=== PATIENT | female | born 1935 | race Caucasian/White ===

== ENCOUNTER 2018-07-11 12:23 | Emergency (ER) | payer BC ==
[~2018-07-11] VITALS: Ht 160 cm; Wt 69.9 kg
[~2018-07-11 12:23] MED LIST: AMLO2.5T PO; LISI10TA11 PO; PRED5TAB7 PO
[2018-07-11 13:03] VITALS: BP 188/81
--- NOTE | 2018-07-11 13:24 | NUR ---
Patient ambulated to bed 10.
--- NOTE | 2018-07-11 13:30 | NUR ---
PT. BIB FAMILY W/ C/O RINGING ON THE LT EAR X 4 DAYS. DENIES DISCHARGE, INJURY, DIZZINESS, DENIES N/V/D. PT DENIES ANY PAIN BUT STATES " IT WAS RINGING ALL LAST NIGHT AND IT DIDNT LET ME SLEEP". RR EVEN AND UNLABORED. ABLE TO SPEAK IN FULL AND COMPLETE SENTENCES. SAFETY PRECAUTIONS IN PLACE. ER MD MADE AWARE. WILL CONTINUE TO MONITOR.
[2018-07-11 15:10] VITALS: BP 167/62
--- NOTE | 2018-07-11 15:10 | NUR ---
Patient discharged with v/s stable. Written and verbal after care instructions given and explained. Patient verbalized understanding. Ambulatory with steady gait. All questions addressed prior to discharge. Advised to follow up with PMD.
== END 2018-07-11 15:10 | disposition home or self-care (01) ==
LOC: MED 12:23
DX: H61.22 Impacted cerumen, left ear (principal); I10 Essential (primary) hypertension; M32.9 Systemic lupus erythematosus, unspecified; Z79.899 Other long term (current) drug therapy
CPT/HCPCS: 99283

== ENCOUNTER 2019-01-04 18:00 | Inpatient (IN) | payer OTHER, BC ==
[~2019-01-04] VITALS: Ht 170.2 cm; Wt 54.4 kg
[2019-01-04 18:16] VITALS: BP 112/77
--- NOTE | 2019-01-04 18:23 | NUR ---
PT WHEEL CHAIRED TO LOBBY AT THIS TIME, VSS. PT STATES SHE IS UNABLE TO PROVIDE URINE SAMPLE AT THIS TIME.
[2019-01-04 18:55] LABS: BASOPHILS % (AUTO) 0.3 % (0.0-2.0); EOSINOPHILS % (AUTO) 0.1 % (0.0-4.0); HEMOGLOBIN 11.4 g/dL (12.0-16.0); LYMPHOCYTES # (AUTO) 1.5 K/uL (2.5-16.5); LYMPHOCYTES % (AUTO) 9.3 % (20.5-51.1); MEAN CORPUSCULAR HEMOGLOBIN 28 pg (27-31); MEAN CORPUSCULAR HGB CONC 33 g/dL (33-37); MEAN CORPUSCULAR VOLUME 85.4 fL (80-94); MONOCYTES # (AUTO) 1.2 K/uL (0.8-1.0); MONOCYTES % (AUTO) 7.7 % (1.7-9.3); NEUTROPHILS # (AUTO) 13.1 K/uL (1.8-7.7); NEUTROPHILS % (AUTO) 82.6 % (42.2-75.2); PLATELET COUNT (AUTO) 474 K/uL (140-450); RED CELL DISTRIBUTION WIDTH 14.3 % (11.6-13.7); WHITE BLOOD COUNT (AUTO) 15.8 K/uL (4.8-10.8)
--- NOTE | 2019-01-04 18:56 | NUR ---
PT TAKEN TO BED 9 VIA W/C.
[2019-01-04 19:10] LABS: ALBUMIN 2.8 g/dL (3.4-5.0); ANION GAP 18.8 (8-16); ASPARTATE AMINOTRANSFERASE 50 U/L (15-37); CARBON DIOXIDE 21.5 mmol/L (21-32); CHLORIDE 99 mmol/L (98-107); CREATININE 1.7 mg/dL (0.6-1.3); GLUCOSE 149 mg/dL (74-106); POTASSIUM 4.3 mmol/L (3.5-5.1); SODIUM SERUM 135 mmol/L (136-145); TOTAL BILIRUBIN 1.1 mg/dL (0.0-1.0)
[2019-01-04 19:13] LABS: UREA NITROGEN, BLOOD 63 mg/dL (7-18)
--- NOTE | 2019-01-04 19:37 | NUR ---
Dr. Leyva examining patient.
[2019-01-04] MEDS ORDERED: NACL 0.9% 500 ML IV SCH (19:50)
[2019-01-04 20:16] LABS: PROTHROMBIN TIME 12.4 secs (10.8-13.4)
--- NOTE | 2019-01-04 20:37 | NUR ---
PT TAKEN TO CT
--- NOTE | 2019-01-04 20:49 | NUR ---
PT RETURN FROM CT
[2019-01-04] MEDS ORDERED: MORPHINE SULFATE 2 MG/ML SYR IVP ONE (21:00)
[2019-01-04] MEDS ORDERED: ASPIRIN 81 MG TAB.CHEW PO ONE (21:00)
--- NOTE | 2019-01-04 21:00 | NUR ---
83 Y/O FEMALE PRESENTS TO ED, C/O LOWER QUADRANT ABD ACHING PAIN 12/30. PT C/O OF N/V X4 WEEKS. STATES BEING UNABLE TO RETAIN FLUID AND FOOD. PT HAS ACTIVE BS ON ALL QUADRANTS. SOFT, TENDER C/O OF PAIN ON PALPATION. PT STATES HAVING DIFFICULTY VOIDING. PT DENIES ANY CONSTIPATION. PT HAS HX OF HTN. PT VSS. ERMD AWARE. WILL CONTINUE TO MONITOR.
--- NOTE | 2019-01-04 21:15 | NUR ---
PT ATTEMPTED TO COLLECT URINE VIA BEDPAN, UNABLE TO AT THIS TIME, PT REFUSING STRAIGHT CATH AT THIS TIME. PT C/O LOWER ABD PAIN, ADMINISTERED DUE MEDS WITH EDUCATION, PT VERBALIZED UNDERSTANDING, REPORTED MILD NAUSEA WHICH RESOLVED SHORTLY AFTER, ALL NEEDS MET.
[2019-01-04] MEDS ORDERED: HYDR-5122 PO (22:00)
[2019-01-04] MEDS ORDERED: LORazepam 2 MG/ML VIAL IM/IVP PRN (22:50)
[2019-01-04] MEDS ORDERED: ACETAMINOPHEN 325 MG TAB PO PRN (22:50)
[2019-01-04] MEDS ORDERED: FAMOTIDINE 20 MG/2 ML VIAL IV PRN (22:50)
[2019-01-04] MEDS ORDERED: MORPHINE SULFATE 2 MG/ML SYR IVP PRN (22:50)
[2019-01-04] MEDS ORDERED: DOCUSATE SODIUM 100 MG GELCAP PO PRN (22:50)
[2019-01-04] MEDS ORDERED: MEDICATION REC. PHARMACY CONS. 1 EA MISC MC PRN (22:55)
[2019-01-04] MEDS ORDERED: HEPARIN PER PHARMACY MC PRN (23:00)
[2019-01-04] MEDS ORDERED: hePARIN / DEXT 5% PREMIX 250 ML IV SCH ×2 (23:00→23:40)
[2019-01-04] MEDS ORDERED: LISINOPRIL 10 MG TAB PO SCH (23:00)
--- NOTE | 2019-01-04 23:10 | NUR ---
RECEIVED PT FROM ER, VIA GURNEY, PATIENT AWAKE ALERT ORIENTED X 4, PERSIAN SPEAKING. PT W/ IV ON THE LEFT FOREARM G 22, PATENT AND INTACT NO IV RUMMING. PT NO COMPLAINTS NO PAIN AT THIS TIME. Dx NSTEMI: CC: ABD PAIN. PT WITH GENERALIZED WEAKNESS, PLACED IN A LOW BED POSITION, FALL RISK PROTOCOL IN PLACE; ALLERGIC TO PCN. CALL LIGHT W/IN REACH. WILL CONTINUE TO MONITOR
[2019-01-04 23:24] LABS: CHOL/HDL RATIO 5.5 (1-4.5); FREE T4 (FREE THYROXINE) 1.44 ng/dL (0.76-1.46); MAGNESIUM 2.7 mg/dL (1.8-2.4); THYROID STIMULATING HORMONE 1.71 uIU/mL (0.34-3.74)
--- NOTE | 2019-01-04 23:30 | NUR ---
PT TRANSFERRED TO MS UNIT ROOM 122A. TRANSFERRED PT VIA GURNEY. PT STABLE AT TRANSFER. REPORT GIVEN TO JONELLE MARK. PT CARE TRANSFERRED.
--- NOTE | 2019-01-04 23:50 | NUR ---
DR DURBIN AT BEDSIDE FOR HX AND PHYSICAL, RN AT BEDSIDE AND USES SPONGE MAKER PHONE PITER # [phone].
--- NOTE | 2019-01-05 | NUR ---
IV LINE FOR HEPARIN DRIP STARTED ON ANOTHER LEFT FOREARM G 22
[2019-01-05] MEDS ORDERED: ALBUTEROL SULFATE/IPRATROPIU 3 ML SOL IH PRN (00:15)
[2019-01-05] MEDS ORDERED: NACL 0.9% 1,000 ML IV SCH (00:30)
[2019-01-05] MEDS ORDERED: cefTRIAXone 1,000 MG VIAL ONE (01:07)
[2019-01-05] MEDS ORDERED: SODIUM PHOSPHATE 118 ML ENEM RC ONE (01:30)
--- NOTE | 2019-01-05 02:00 | NUR ---
PT C/O OF 7/10 BILATERAL ABDOMINAL PAIN, MORPHINE PRN GIVEN
[2019-01-05 02:07] LABS: APPEARANCE,URINE SL CLOUDY (CLEAR); BILIRUBIN,URINE 1+ (NEGATIVE); BLOOD, URINE 1+ (NEGATIVE); COLOR,URINE YELLOW (YELLOW); LEUKOCYTE ESTERASE ,URINE 1+ (NEGATIVE); NITRITE, URINE NEGATIVE (NEGATIVE); PH,URINE 5.5 (5.0-9.0); UGLUCOSE NEGATIVE (NEGATIVE)
[2019-01-05] MEDS: DOCUSATE SODIUM 100 MG GELCAP PO SCH ×3 (02:10→09:16)
--- NOTE | 2019-01-05 02:30 | NUR ---
CLEANED PT AND TURNED PT W/ THE HELP OF THE PT
[2019-01-05] MEDS ORDERED: HYDROmorphone 1 MG/ML AMP IVP PRN (02:35)
[2019-01-05 02:38] LABS: RBC,URINE 0-5 /HPF (0-5); URINE AMORPHOUS URATE 2+ /HPF (None Seen)
[2019-01-05] MEDS: DEXT 5% / NACL 0.9% 1,000 ML IV SCH ×2 (03:46→18:41)
[2019-01-05 04:00] VITALS: BP 131/65
--- NOTE | 2019-01-05 04:00 | NUR ---
PT C/O OF PAIN CHANDRAKANT 11/29 WILL GIVE PAIN MEDS ORDERED
[2019-01-05] MEDS: metroNIDAZOLE 500 MG/NS PREMIX 100 ML IV SCH ×3 (05:41→20:50)
[2019-01-05] MEDS: HYDROmorphone 1 MG/ML AMP IVP PRN ×3 (05:45→19:40)
[2019-01-05] MEDS ORDERED: ALBUTEROL SULFATE/IPRATROPIU 3 ML SOL IH SCH (06:00)
--- NOTE | 2019-01-05 07:10 | NUR ---
WILL ENDORSE TO NEXT SHIFT; PT AWAKE ALERT ORIENTED X 4 STABLE AT THIS TIME
[2019-01-05 07:16] LABS: BASOPHILS # (AUTO) 0.1 K/uL (0.00-0.22); BASOPHILS % (AUTO) 0.5 % (0.0-2.0); EOSINOPHILS % (AUTO) 0.1 % (0.0-4.0); HEMATOCRIT 32.4 % (36-48); HEMOGLOBIN 10.4 g/dL (12.0-16.0); LYMPHOCYTES # (AUTO) 1.2 K/uL (2.5-16.5); LYMPHOCYTES % (AUTO) 8.9 % (20.5-51.1); MEAN CORPUSCULAR HEMOGLOBIN 28 pg (27-31); MEAN CORPUSCULAR HGB CONC 32 g/dL (33-37); MEAN CORPUSCULAR VOLUME 86.1 fL (80-94); MONOCYTES # (AUTO) 1.3 K/uL (0.8-1.0); MONOCYTES % (AUTO) 9.6 % (1.7-9.3); NEUTROPHILS # (AUTO) 10.8 K/uL (1.8-7.7); NEUTROPHILS % (AUTO) 80.9 % (42.2-75.2); PLATELET COUNT (AUTO) 412 K/uL (140-450); RED BLOOD CELL COUNT(AUTO) 3.77 MIL/uL (4.20-5.40); RED CELL DISTRIBUTION WIDTH 14.3 % (11.6-13.7); WHITE BLOOD COUNT (AUTO) 13.4 K/uL (4.8-10.8)
--- NOTE | 2019-01-05 07:20 | NUR ---
RECEIVED REPORT FROM PERSONNEL SECURITY ASSISTANT NURSE. PT IS AWAKE AND ORIENTED. PT IS ON ROOM AIR. ON TELE. SKIN INTACT. IV ON L FA 22 X 2. ONE D5NS INFUSING AT 75ML AND OTHER, HEPARIN AT 650UNITS/HR. NO SIGNS OF DISTRESS. PT IS NPO EXCEPT MEDS. WILL CONTINUE TO MONITOR PT.
[2019-01-05 07:21] LABS: ANION GAP 15.7 (8-16); CARBON DIOXIDE 23.8 mmol/L (21-32); CHLORIDE 103 mmol/L (98-107); CREATININE 1.1 mg/dL (0.6-1.3); GLUCOSE 130 mg/dL (74-106); POTASSIUM 3.5 mmol/L (3.5-5.1); SODIUM SERUM 139 mmol/L (136-145); UREA NITROGEN, BLOOD 50 mg/dL (7-18)
[2019-01-05 07:22] LABS: MAGNESIUM 2.5 mg/dL (1.8-2.4); PHOSPHORUS 3.7 mg/dL (2.5-4.9)
--- NOTE | 2019-01-05 07:54 | NUR ---
PATIENT HAS BEEN SCREENED AND CATEGORIZED HIGH NUTRITION RISK. PATIENT WILL BE SEEN WITHIN 1-2 DAYS OF ADMISSION. 01/05/19-01/06/[address]
[2019-01-05 08:00] VITALS: BP 115/57
[2019-01-05] MEDS ORDERED: LACTOBACILLUS RHAMNOSUS GG 1 EACH CAP PO SCH ×2 (09:00)
[2019-01-05] MEDS: ASPIRIN 81 MG TAB.CHEW PO SCH (09:16)
[2019-01-05] MEDS: METOPROLOL 25 MG TAB PO SCH ×2 (09:17→21:00)
[2019-01-05] MEDS: POLYETHYLENE GLYCOL 17 GM/PKT PO SCH (09:17)
--- NOTE | 2019-01-05 09:20 | NUR ---
ADMINISTERED MORNING MEDS. TOLERATED WELL. WILL CONTINUE TO MONITOR PT.
--- NOTE | 2019-01-05 10:21 | NUR ---
PT PTT CAME BACK AT 38.5. HEPARIN PUSH 1600 AND INCREASE 110 TO CURRENT 650. CURRENT RATE 760. PHARMACY VERIFIED. TOLERATING WELL.
[2019-01-05 12:00] VITALS: BP 110/58
--- NOTE | 2019-01-05 12:00 | NUR ---
ORDERS FOR HEPARIN DRIP TO BE CANCELLED. PHARMACY CALLED. STOPPED HEPARIN DRIP. DISCARDED FLUID AND LINES FROM ROOM.
--- NOTE | 2019-01-05 13:25 | NUR ---
ADMINISTERED FLAGYL. WILL CONTINUE TO MONITOR PT.
--- NOTE | 2019-01-05 13:26 | NUR ---
*S.T. BEDSIDE SWALLOW EVAL COMPLETED* See report. Pt presents with adequate oropharyngeal swallow function of textures given. However, pt was mostly noncooperative during eval due to c/o disliking the P.O. trials that were given for the eval. Pt volitionally spit out masticated cracker and juice from straw. However, no overt s/s aspiration were observed. Pt was observed to cough before and after P.O. trials were given, but pt stated and DEEDEE Kruse verified that pt has had a cough at rest. Pt's voice was clear after swallows. Recommend: 1) Advance to mechanical soft diet. Thin liquids okay. Straws okay. 2) P.O. meds as tolerated. 3) Nsg to assist with tray set up to promote self-feeding. 4) Defer to MD/DO for appropriate dietary restrictions. No further tx indicated at this time. DC to nsg. Endorsed to DEEDEE Kruse. Addendum: 01/05/19 at 1326 by Rosaura HODGES Time [phone]
[2019-01-05] MEDS: ALBUTEROL SULFATE/IPRATROPIU 3 ML SOL IH SCH ×2 (13:35→20:00)
--- NOTE | 2019-01-05 14:11 | NUR ---
01/05/19 RD INITIAL ASSESSMENT COMPLETED PLEASE REFER TO NUTRITION ASSESSMENT UNDER CARE ACTIVITY FOR ESTIMATED NUTRITIONAL NEEDS. 1. CONSIDER MECHANICAL SOFT DIET WITH ENSURE TID TOLERATED 2. IF PATIENT CANNOT TOLERATE ORAL DIET, CONSIDER NUTRITION SUPPORT VIA ENTERAL NUTRITION WITH JEVITY 1.2 @ 65 ML/HR X 24 HOURS GOAL RATE. START AT 10 ML/HR AND ADVANCE BY 10 ML/HR Q6H TO AVOID REFEEDING SYNDROME. FREE WATER FLUSH 100 ML Q4H 3. CONSIDER TPN IF PATIENT DOES NOT TOLERATE TUBE FEEDING 4. RD TO FOLLOW-UP 2-3 DAYS, HIGH RISK SAVANNAH JOSEPH RD
--- NOTE | 2019-01-05 15:00 | NUR ---
GOT CONSENT FOR CT ABD/PEL WITH CONTRAST. PT VERBALIZED UNDERSTANDING. SIGNED CONSENT. IN CHART.
[2019-01-05 16:00] VITALS: BP 125/61
--- NOTE | 2019-01-05 19:24 | NUR ---
ENDORSED PT TO THE RESIDENTIAL ADVISOR NURSE AT BEDSIDE FOR CONTINUITY OF CARE. PT IS IN STABLE CONDITION.
--- NOTE | 2019-01-05 19:25 | NUR ---
RECEIVED REPORT FROM LOG PEELER NURSE. PT IS AWAKE AND ORIENTEDX 4. PT IS ON ROOM AIR. ON TELE. ANGIE AT BEDSIDE. SKIN INTACT. IV ON L FA 22 X 2. D5NS INFUSING AT 75ML. ANOTHER IV ON THE R FA G 20, SL. PT IS A HARD STICK. NO SIGNS OF DISTRESS. PT IS ON CARDIAC DIET. WILL CONTINUE TO MONITOR PT.
--- NOTE | 2019-01-05 19:30 | NUR ---
ATE WITH 40% DINNER, MECH SOFT
--- NOTE | 2019-01-05 19:40 | NUR ---
PT' C/O ABD PAIN 11/29 DILAUDID PRN GIVEN
[2019-01-05 20:00] VITALS: BP 122/63
--- NOTE | 2019-01-05 20:26 | NUR ---
2009 collected sputum and sent to lab
--- NOTE | 2019-01-05 20:58 | NUR ---
WITHHELD THE BP MEDS LOPRESSOR BP IS 122/63, HR 80, DR. UDRBIN INFORMED
[2019-01-05] MEDS ORDERED: SIMVASTATIN 10 MG TAB PO SCH (21:00)
[2019-01-06] VITALS: BP 119/59
[2019-01-06 04:00] VITALS: BP 120/60
--- NOTE | 2019-01-06 05:23 | NUR ---
PT NOT TOLERATING FOOD/ SNACKS SHE SPITS IT OUT ALTHOUGH PER ST, SHE PASSED HER SWALLOW EVAL. DR. DURBIN INFORMED. WILL ORDER ENSURE TID
[2019-01-06] MEDS: DEXT 5% / NACL 0.9% 1,000 ML IV SCH (06:17)
[2019-01-06] MEDS: metroNIDAZOLE 500 MG/NS PREMIX 100 ML IV SCH ×3 (06:25→21:49)
[2019-01-06] MEDS: ALBUTEROL SULFATE/IPRATROPIU 3 ML SOL IH SCH ×3 (07:00→18:54)
[2019-01-06 07:19] LABS: BASOPHILS # (AUTO) 0.1 K/uL (0.00-0.22); BASOPHILS % (AUTO) 0.7 % (0.0-2.0); EOSINOPHILS % (AUTO) 0.2 % (0.0-4.0); HEMATOCRIT 30.7 % (36-48); HEMOGLOBIN 10.1 g/dL (12.0-16.0); LYMPHOCYTES # (AUTO) 0.7 K/uL (2.5-16.5); LYMPHOCYTES % (AUTO) 5.4 % (20.5-51.1); MEAN CORPUSCULAR HEMOGLOBIN 28 pg (27-31); MEAN CORPUSCULAR HGB CONC 33 g/dL (33-37); MEAN CORPUSCULAR VOLUME 86.5 fL (80-94); MONOCYTES # (AUTO) 1.3 K/uL (0.8-1.0); MONOCYTES % (AUTO) 10.5 % (1.7-9.3); NEUTROPHILS # (AUTO) 10.5 K/uL (1.8-7.7); NEUTROPHILS % (AUTO) 83.2 % (42.2-75.2); PLATELET COUNT (AUTO) 401 K/uL (140-450); RED BLOOD CELL COUNT(AUTO) 3.55 MIL/uL (4.20-5.40); RED CELL DISTRIBUTION WIDTH 14.1 % (11.6-13.7); WHITE BLOOD COUNT (AUTO) 12.6 K/uL (4.8-10.8)
--- NOTE | 2019-01-06 07:20 | NUR ---
GOT BEDSIDE REPORT FROM ASSOCIATE JAVA DEVELOPER NURSE. PATIENT ON TELE MONITOR WITH STANDARD PRECAUTIONS IN PLACE. PATIENT AAOX3, FOLLOWS COMMANDS, AND ON ROOM AIR, NO DISTRESS NOTED. PATIENT BEDREST AND CONTINENT. SKIN INTACT. IV ON L FA 22G INFUSING D5NS AT 75, IV PATENT AND INTACT. IVS ON L FA 22G AND R FA 22G BOTH SALINE LOCK, IVS PATENT AND INTACT. FALL RISK PROTOCOL IN PLACE. BED IN LOW POSITION, CALL LIGHT WITHIN REACH, SIDE RAILS X2 UP
[2019-01-06 07:28] LABS: MAGNESIUM 2.2 mg/dL (1.8-2.4); PHOSPHORUS 3.1 mg/dL (2.5-4.9)
[2019-01-06 07:31] LABS: ANION GAP 12.1 (8-16); CARBON DIOXIDE 26.1 mmol/L (21-32); CHLORIDE 109 mmol/L (98-107); CREATININE 0.9 mg/dL (0.6-1.3); GLUCOSE 168 mg/dL (74-106); POTASSIUM 3.2 mmol/L (3.5-5.1); SODIUM SERUM 144 mmol/L (136-145); UREA NITROGEN, BLOOD 36 mg/dL (7-18)
[2019-01-06 08:00] VITALS: BP 140/58
[2019-01-06] MEDS: HYDROmorphone 1 MG/ML AMP IVP PRN ×4 (08:29→21:38)
[2019-01-06] MEDS: ONDANSETRON 4 MG/2 ML VIAL IM/IVP PRN ×2 (08:34→12:49)
--- NOTE | 2019-01-06 08:45 | NUR ---
ADMINISTERED PRN PAIN MED AND ZOFRAN PRN FOR NAUSEA. PATIENT TOLERATED WELL. REFUSED OTHER SCHEDULED PO MEDS D/T NAUSEA, WILL NOTIFY DR. SPRINGER
[2019-01-06] MEDS: DOCUSATE SODIUM 100 MG GELCAP PO SCH (08:47)
[2019-01-06] MEDS: ASPIRIN 81 MG TAB.CHEW PO SCH (08:47)
[2019-01-06] MEDS: POLYETHYLENE GLYCOL 17 GM/PKT PO SCH (08:48)
[2019-01-06] MEDS: LACTOBACILLUS RHAMNOSUS GG 1 EACH CAP PO SCH (08:48)
[2019-01-06] MEDS: METOPROLOL 25 MG TAB PO SCH ×2 (08:48→21:36)
--- NOTE | 2019-01-06 11:30 | NUR ---
PATIENT CONTINUING TO SPIT UP, ON ROOM AIR, NO DISTRESS NOTED
[2019-01-06 12:00] VITALS: BP 131/62
--- NOTE | 2019-01-06 14:51 | NUR ---
PATIENT SLEEPING, ON ROOM AIR, NO DISTRESS NOTED
[2019-01-06 16:00] VITALS: BP 139/69
[2019-01-06] MEDS ORDERED: KCL 20 MEQ/WATER INJ PREMIX 200 ML IV SCH (16:00)
--- NOTE | 2019-01-06 16:49 | NUR ---
ADMINISTERED PRN PAIN MED. PATIENT TOLERATED WELL
[2019-01-06] MEDS ORDERED: PROMETHAZINE 25 MG/ML VIAL IVP SCH (19:00)
--- NOTE | 2019-01-06 19:22 | NUR ---
RECEIVED REPORT FORM TRANG MARK DAYSHIFT NURSE AT BEDSIDE FOR CONTINUITY OF CARE, PT IN STABLE CONDITION.
[2019-01-06 20:00] VITALS: BP 137/66
--- NOTE | 2019-01-06 21:40 | NUR ---
PT IN BED FAMILY AT BEDSIDE. PT IS FINNISH AND MACANESE SPEAKING SHE IS AOX2. PT V/S FOLLOWS T 98.1 P 85 R 18 B/P 137/66 02 96% ON ROOM AIR. PT HAS 3 IV SITES . PT C/O OF IV SITES ON RIGHT EXTREMITY. IV FLUIDS SWITCHED TO 20G LEFT AC. D5 NS RUNNING AT 75MLS. PT MOANING AND RESTLESS WITH C/O OF 8/10 ABD PAIN GIVEN DILAUDID IVP. PT SOILED LINENS BUT DIDN'T WANT TO BE TURNED OR CHANGED. WILL MONITOR PT FOR PAIN RELIEF AND WILL ATTEMPT TO TURN AND CHANGE PT LATER.
--- NOTE | 2019-01-06 22:30 | NUR ---
PT AGREED TO BE TURNED AND CHANGED. ALL FALLS PRECAUTIONS IN PLACE.
[2019-01-07] VITALS: BP 108/64
--- NOTE | 2019-01-07 | NUR ---
PT IN BED ROCEPHIN IVPB HUNG AND RUNNING ORDERED. PT C/O 8/10 PAIN IN ABDOMEN WELL NAUSEA. PT GIVEN IVP PRN DILAUDID AND ZOFRAN FOR PAIN AND NAUSEA. V/S FOLLOWS T 98.6 P 77 R 18 B/P 108/64 02 93% ON ROOM AIR. ALL REQUESTED NEEDS ATTNEDE AND CALL RESTREPO IN REACH.
[2019-01-07] MEDS ORDERED: cefTRIAXone 1,000 MG VIAL ONE (00:57)
[2019-01-07] MEDS: DEXT 5% / NACL 0.9% 1,000 ML IV SCH ×3 (01:03→17:35)
[2019-01-07] MEDS: HYDROmorphone 1 MG/ML AMP IVP PRN ×6 (01:16→22:57)
[2019-01-07] MEDS: ONDANSETRON 4 MG/2 ML VIAL IM/IVP PRN ×2 (01:16→06:29)
--- NOTE | 2019-01-07 03:00 | NUR ---
PT IN BED SLEEPING NO S/S OF PAIN OR DISTRESS NOTED.
--- NOTE | 2019-01-07 06:00 | NUR ---
PT C/O NAUSEA AND WAS GIVEN PRN/IVP ZOFRAN. BLOOD DRAWS AT BEDSIDE. PT DENIES ANY PAIN . ALL REQUESTED NEEDS ATTENDED BY STAFF AND CALL RESTERPO IN REACH. PT IN STABLE CONDITION. WILL ENDORSE POC TOO AM SHIFT.
[2019-01-07] MEDS: metroNIDAZOLE 500 MG/NS PREMIX 100 ML IV SCH ×3 (06:18→22:35)
[2019-01-07] MEDS: ALBUTEROL SULFATE/IPRATROPIU 3 ML SOL IH SCH ×3 (06:48→19:40)
--- NOTE | 2019-01-07 07:25 | NUR ---
RECEIVED BEDSIDE REPORT FROM RESEARCH INTERVIEWER NURSE FOR CONTINUITY OF CARE. PATIENT AAOX3, FOLLOWS COMMANDS, ON ROOM AIR, NO DISTRESS NOTED. PATIENT HAS INTERMITTENT COUGH. PATIENT ON BEDREST AND INCONTINENT. SKIN INTACT WITH BRUISING TO BUE. IV ON R FA 22G INFUSING D5NS AT 75 ML/HR, IV PATENT AND INTACT. IVS ON L FA 22G AND L FA 22G BOTH SALINE LOCK, PATENT AND INTACT. UPDATED BOARD. UPDATED PATIENT AND FAMILY MEMBER ANTIONIO AT BEDSIDE ON PLAN OF CARE, THEY VERBALIZED UNDERSTANDING. SAFETY PRECAUTIONS IN PLACE, CALL LIGHT WITHIN REACH, BED IN LOWEST SETTING WITH 2X SIDE RAILS UP. WILL CONTINUE TO MONITOR PATIENT.
--- NOTE | 2019-01-07 07:39 | NUR ---
PT C/O ABD PAIN, PRN PAIN MEDICATION GIVEN. PATIENT TOLERATING IT. NO COMPLAINTS AT THIS TIME. FAMILY MEMBER ANTIONIO AT BEDSIDE. WILL CONTINUE TO MONITOR PATIENT.
[2019-01-07 07:45] VITALS: BP 129/67
[2019-01-07] MEDS: ASPIRIN 81 MG TAB.CHEW PO SCH (08:47)
[2019-01-07] MEDS: LACTOBACILLUS RHAMNOSUS GG 1 EACH CAP PO SCH (08:47)
[2019-01-07] MEDS: DOCUSATE SODIUM 100 MG GELCAP PO SCH (08:48)
[2019-01-07] MEDS: BENZONATATE 100 MG CAPLF PO PRN ×2 (08:48→13:40)
[2019-01-07] MEDS: POLYETHYLENE GLYCOL 17 GM/PKT PO SCH (08:48)
[2019-01-07] MEDS: METOPROLOL 25 MG TAB PO SCH ×2 (08:48→22:51)
--- NOTE | 2019-01-07 10:41 | NUR ---
PT C/O ABD PAIN, PRN PAIN MEDICATION GIVEN. PATIENT TOLERATING IT. NO COMPLAINTS AT THIS TIME. FAMILY MEMBER ANTIONIO AT BEDSIDE. WILL CONTINUE TO MONITOR PATIENT.
[2019-01-07 11:03] LABS: BASOPHILS # (AUTO) 0.1 K/uL (0.00-0.22); BASOPHILS % (AUTO) 0.4 % (0.0-2.0); EOSINOPHILS % (AUTO) 0.2 % (0.0-4.0); HEMATOCRIT 32.3 % (36-48); HEMOGLOBIN 10.4 g/dL (12.0-16.0); LYMPHOCYTES # (AUTO) 0.9 K/uL (2.5-16.5); MEAN CORPUSCULAR HEMOGLOBIN 28 pg (27-31); MEAN CORPUSCULAR HGB CONC 32 g/dL (33-37); MEAN CORPUSCULAR VOLUME 86.9 fL (80-94); MONOCYTES # (AUTO) 1.3 K/uL (0.8-1.0); MONOCYTES % (AUTO) 8.6 % (1.7-9.3); NEUTROPHILS # (AUTO) 13.3 K/uL (1.8-7.7); NEUTROPHILS % (AUTO) 84.8 % (42.2-75.2); PLATELET COUNT (AUTO) 419 K/uL (140-450); RED BLOOD CELL COUNT(AUTO) 3.72 MIL/uL (4.20-5.40); RED CELL DISTRIBUTION WIDTH 14.7 % (11.6-13.7); WHITE BLOOD COUNT (AUTO) 15.7 K/uL (4.8-10.8)
[2019-01-07 11:18] LABS: ANION GAP 12.5 (8-16); CARBON DIOXIDE 24.4 mmol/L (21-32); CHLORIDE 113 mmol/L (98-107); CREATININE 1.1 mg/dL (0.6-1.3); GLUCOSE 165 mg/dL (74-106); POTASSIUM 3.9 mmol/L (3.5-5.1); SODIUM SERUM 146 mmol/L (136-145); UREA NITROGEN, BLOOD 29 mg/dL (7-18)
--- NOTE | 2019-01-07 12:28 | NUR ---
DR. ALVARENGA IN TO SEE THE PATIENT. WILL WAIT FOR HIS EVALUATION. [facility] CALLED ABOUT PARACENTESIS SCHEDULED FOR TOMORROW, PT PTT INR LABS NEEDED. INFORMED DR SPRINGER. WILL WAIT FOR HIS ORDERS.
[2019-01-07] MEDS ORDERED: PROMETHAZINE 25 MG/ML VIAL IM/IVP PRN (13:00)
[2019-01-07] MEDS ORDERED: SIMETHICONE 80 MG TAB.CHEW PO SCH (13:00)
--- NOTE | 2019-01-07 13:49 | NUR ---
ORDERED MEDICATIONS GIVEN. PRN IV PAIN MEDICATION GIVEN. PATIENT TOLERATED IT. PATIENT NOW GETTING XRAY OF ABDOMEN DONE. WILL WAIT FOR RESULTS.
--- NOTE | 2019-01-07 14:30 | NUR ---
CONSENT FOR EGD OBTAINED, NO COMPLAINTS AT THIS TIME. WILL CONTINUE TO MONITOR PATIENT.
[2019-01-07 16:00] VITALS: BP 121/67
--- NOTE | 2019-01-07 16:50 | NUR ---
PATIENT SLEEPING IN BED COMFORTABLY, FAMILY MEMBER ANGIE AT BEDSIDE. NO COMPLAINTS AT THIS TIME. ALL NEEDS MET. WILL CONTINUE TO MONITOR PATIENT.
--- NOTE | 2019-01-07 17:01 | NUR ---
PT C/O ABD PAIN, PRN PAIN MEDICATION GIVEN. PATIENT TOLERATING IT. NO COMPLAINTS AT THIS TIME. FAMILY MEMBER ANTIONIO AT BEDSIDE. WILL CONTINUE TO MONITOR PATIENT.
--- NOTE | 2019-01-07 19:32 | NUR ---
REPORT GIVEN TO FANCY WIRE DRAWER RN AT BEDSIDE FOR CONTINUITY OF CARE. PATIENT IN STABLE CONDITION.
--- NOTE | 2019-01-07 19:33 | NUR ---
RECEIVED REPORT AT BEDSIDE FROM CONCETTA RN DAYSHIFT NURSE FOR CONTINUITY OF CARE, PT IN STABLE CONDITION.
[2019-01-08] VITALS: BP 103/48
--- NOTE | 2019-01-08 00:18 | NUR ---
USED OPHTHALMIC ASST SYSTEM [employer] WITH OPHTHALMIC ASST KENZIE . EXPLAINED TO FAMILY MEMBER AND PT THAT CONSENT NEEDS TO BE SIGNED FOR US PARACENTESIS. EXPLAINED WHAT PROCEDURE IS AND WHY PT NEEDS TO HAVE THE PROCEDURE DONE. FAMILY MEMBER DIDN'T WANT TO SIGN FOR CONCERN THAT PT WILL WAKE UP AND ASK LOTS OF QUESTIONS. EXPLAINED AGAIN THE IMPORTANCE OF WHY THE CONSENT NEEDS TO BE SIGNED AND THAT SHE NEEDS TO HAVE THE PARACENTESIS TO DRAIN FLUID THAT WAS BUILDING UP IN HER BELLY. PT WAS TOO TIRED TO SIGN ALTHOUGH SHE GAVE VERBAL CONSENT AND FAMILY MEMBER REFUSED TO SIGN. WILL TRY BACK LATER.
[2019-01-08] MEDS: HYDROmorphone 1 MG/ML AMP IVP PRN ×3 (04:05→20:03)
[2019-01-08] MEDS: ONDANSETRON 4 MG/2 ML VIAL IM/IVP PRN (04:07)
[2019-01-08] MEDS: metroNIDAZOLE 500 MG/NS PREMIX 100 ML IV SCH (04:19)
--- NOTE | 2019-01-08 04:24 | NUR ---
SPOKE WITH PT AND FAMILY REGARDING PENDING TESTS FOR AM. FAMILY REMINDED THAT PT NEEDS TO BE NPO, SPOKE WITH ICE CHIPS OK. FAMILY DECLINES TO SIGN CONSENT AND SAID THAT HE WANTS HIS MOM TO BE AWAKE AND AWARE WHAT SHE IS SIGNING. PT WAS AWAKE ANSWERING QUESTIONS OF ORIENTATION. HOWEVER FAMILY MEMBER WBNATS TO WAIT FOR AM SHIFT TO SIGN CONSENT.
--- NOTE | 2019-01-08 04:31 | NUR ---
PT TURNED AND CHANGED, JOSSELYN HUNG ORDERED. PT GIVEN DILAUDID IVP FOR SEVERE PAIN WELL ZOFRAN IVP FOR NAUSEA.
[2019-01-08 06:18] LABS: MAGNESIUM 2.2 mg/dL (1.8-2.4); PHOSPHORUS 3.3 mg/dL (2.5-4.9)
[2019-01-08 06:23] LABS: PROTHROMBIN TIME 14.3 secs (10.8-13.4)
[2019-01-08] MEDS: ALBUTEROL SULFATE/IPRATROPIU 3 ML SOL IH SCH ×3 (06:53→19:29)
--- NOTE | 2019-01-08 07:15 | NUR ---
RECEIVED BEDSIDE REPORT FROM MEN'S SWIM COACH NURSE. PT IS AWAKE AND ALERT IN BED, NO S/S OF ANY ACUTE DISTRESS OR SOB NOTED. PT ON ROOM AIR, SKIN INTACT. BOYFRIEND IS AT BEDSIDE. PT IS NPO FOR UPCOMING EGD AND PARACENTESIS PROCEDURES TODAY. IV SITE IS IN THE R AC 20 G INFUSING D5NS 50 ML/HR. FALL PRECAUTIONS ARE IN PLACE, CALL LIGHT WITHIN REACH. WILL CONTINUE TO MONITOR.
[2019-01-08 07:33] LABS: HEMATOCRIT 31.1 % (36-48); HEMOGLOBIN 9.9 g/dL (12.0-16.0); MEAN CORPUSCULAR HEMOGLOBIN 28 pg (27-31); MEAN CORPUSCULAR HGB CONC 32 g/dL (33-37); MEAN CORPUSCULAR VOLUME 87.7 fL (80-94); PLATELET COUNT (AUTO) 421 K/uL (140-450); RED BLOOD CELL COUNT(AUTO) 3.54 MIL/uL (4.20-5.40); RED CELL DISTRIBUTION WIDTH 15.1 % (11.6-13.7); WHITE BLOOD COUNT (AUTO) 16.9 K/uL (4.8-10.8)
[2019-01-08] MEDS ORDERED: PROMETHAZINE 25 MG/ML VIAL IM/IVP PRN (07:33)
[2019-01-08 07:41] LABS: ANION GAP 15.9 (8-16); CARBON DIOXIDE 21.1 mmol/L (21-32); CHLORIDE 114 mmol/L (98-107); CREATININE 1.3 mg/dL (0.6-1.3); GLUCOSE 141 mg/dL (74-106); SODIUM SERUM 147 mmol/L (136-145); UREA NITROGEN, BLOOD 32 mg/dL (7-18)
--- NOTE | 2019-01-08 07:45 | NUR ---
OBTAINED PT CONSENT FOR PARACENTESIS
[2019-01-08 07:59] LABS: LYMPHOCYTES % (MANUAL) 11 % (20-46); MONOCYTES % (MANUAL) 13 % (5-12)
[2019-01-08 08:00] VITALS: BP 125/63
[2019-01-08] MEDS ORDERED: METOCLOPRAMIDE 10 MG/2 ML INJ VIAL IVP PRN (08:10)
[2019-01-08] MEDS: LACTOBACILLUS RHAMNOSUS GG 1 EACH CAP PO SCH (08:40)
[2019-01-08] MEDS: ASPIRIN 81 MG TAB.CHEW PO SCH (08:41)
[2019-01-08] MEDS: METOPROLOL 25 MG TAB PO SCH ×2 (08:41→20:11)
[2019-01-08] MEDS: DOCUSATE SODIUM 100 MG GELCAP PO SCH (08:41)
[2019-01-08] MEDS: HYDROcodone/APAP 7.5/325 MG 1 TAB PO PRN ×2 (08:41→15:08)
[2019-01-08] MEDS: POLYETHYLENE GLYCOL 17 GM/PKT PO SCH (08:42)
--- NOTE | 2019-01-08 08:50 | NUR ---
AM MEDS ADMINISTERED, PT TOLERATED WELL.
--- NOTE | 2019-01-08 09:02 | NUR ---
Late entry. Confirmed with RN that 1000ml 0.9 NS IV completed at 2130
--- NOTE | 2019-01-08 11:25 | NUR ---
PT HAVING PARACENTESIS AT THIS TIME. Addendum: 01/08/19 at 1141 by Malika Felder RN 3000 ML FLUID REMOVED
--- NOTE | 2019-01-08 11:45 | NUR ---
CURRENT BP READINGS POST-PARACENTESIS: 92/54, 91/48. PT IS NOT IN ANY ACUTE DISTRESS.
--- NOTE | 2019-01-08 11:58 | NUR ---
CONTAINERS WITH ASCITES FLUID LABELED AND TAKEN TO LAB.
--- NOTE | 2019-01-08 11:59 | NUR ---
CALLED LD [facility] [phone] NOTIFIED HER THAT PT NEEDS TO GO TO SNF FOR PT , PER LD THEY CONTRACTED WITH [facility] [phone], [facility] AND [facility] [place]. SPOKE WITH THE PATIENT AND SIGNIFICANT OTHER MR ADAMS NOTIFIED THEM THE CONTRACTED FACILITY IS ONLY AT [place]. PT AND MR ADAMS AGREED TO GO TO [place]. FAXED PAPERWORK TO [facility] AT [phone].
--- NOTE | 2019-01-08 12:13 | NUR ---
I RECEIVED A CALL FROM [facility] [phone] SPOKE WITH JAMES TORCH BRAZER ACCEPTED PT PROVIDED THAT AUTH # [id number] AND PT CAN GO TO [address]ESS [address] [place] [id number] # TO GIVE REPORT [phone] [facility] WITH [employer] TIME 3:30 PM NOTIFIED MR ADAMS FAMILY MEMBER AND NURSE MILADY NOE.
--- NOTE | 2019-01-08 13:00 | NUR ---
PT SLEEPING WITH NO SIGNS OF DISTRESS NOTED NO HHN GIVEN
[2019-01-08] MEDS ORDERED: ROC2I IV (13:23)
[2019-01-08] MEDS ORDERED: ASPI81CT95 PO (13:23)
[2019-01-08] MEDS ORDERED: DOCU-299 PO (13:23)
[2019-01-08] MEDS ORDERED: DIL1I IVP (13:23)
[2019-01-08] MEDS ORDERED: LISI10TA11 PO (13:23)
[2019-01-08] MEDS ORDERED: SIMV10TA6 PO (13:23)
[2019-01-08] MEDS ORDERED: LACT10CA PO (13:23)
[2019-01-08] MEDS ORDERED: METR500T1 PO (13:23)
[2019-01-08 16:00] VITALS: BP 106/60
[2019-01-08] MEDS ORDERED: SPIR50TA PO (16:41)
[2019-01-08] MEDS ORDERED: FURO-570 PO (16:41)
[2019-01-08 16:49] LABS: APPEARANCE,SPUN,BODY FLUID CLEAR (CLEAR); APPEARANCE,UNSPUN,BODY FLUID HAZY (CLEAR); COLOR,BODY FLUID YELLOW (LT YELLOW); SPECIMENTYPE,BODY FLUID PARACENTESIS; TOTAL VOLUME,BODY FLUID 3250 mL
[2019-01-08] MEDS ORDERED: FUROSEMIDE 20 MG/2 ML VIAL IVP SCH (17:00)
[2019-01-08 17:01] LABS: GLUCOSE,BODY FLUID 139 mg/dL
[2019-01-08] MEDS: fentaNYL 0.05 MG/ML VIAL ONE ×2 (17:30→17:42)
[2019-01-08] MEDS ORDERED: diphenhydrAMINE 50 MG/ML VIAL ONE (17:30)
[2019-01-08] MEDS ORDERED: SPIRONOLACTONE 50 MG TAB PO SCH (17:30)
[2019-01-08] MEDS: MIDAZOLAM 2 MG/2 ML VIAL ONE ×2 (17:30→17:42)
--- NOTE | 2019-01-08 17:40 | NUR ---
PT TAKEN OFF UNIT FOR EGD
[2019-01-08 17:45] LABS: POLYNUCLEAR, BODY FLUID 14 %; RBC, BODY FLUID 2283 /cu. mm.; WBC, BODY FLUID 466 /cu. mm.
[2019-01-08] MEDS ORDERED: PANT40EC PO (18:09)
--- NOTE | 2019-01-08 18:15 | NUR ---
PT IS BACK FROM EGD. PER OR NURSE, PT WAS FOUND TO HAVE SEVERE ESOPHAGITIS. ESOPHAGUS BIOPSY WAS TAKEN. POST-PROCEDURE VITAL SIGNS STABLE TO BASELINE: BP 96/60, HR 85, O2 97, TEMP 98.2, RR 18. PT IS NOT IN ANY ACUTE DISTRESS AND IS OFFERED ORAL FLUIDS FOR HYDRATION.
--- NOTE | 2019-01-08 18:30 | NUR ---
PHONE REPORT GIVEN TO HENRY AT [facility] FOR PT'S TRANSFER TONMICHELLE.
--- NOTE | 2019-01-08 19:15 | NUR ---
PT ENDORSED TO MARKETING RECRUITER NURSE IN STABLE CONDITION.
--- NOTE | 2019-01-08 19:16 | NUR ---
RECEIVED BEDSIDE REPORT FROM AM SHIFT RN MILADY, FOR PT'S CONTINUITY OF CARE. PATIENT IS AWAKE, ALERT, ORIENTED X 4, THAI SPEAKING, VISITOR AT BEDSIDE. PATIENT IS ON ROOM AIR, HAS RIGHT AC 20G IV INFUSING WITH D5NS AT 50 ML/HR. PATIENT IS TO BE TRANSFERRED TO [facility] FOR IV ABX AND PT, FACILITY AWARE. PATIENT C/O TOLERABLE PAIN. INFORMED PATIENT TO CALL FOR RN IF PAIN INCREASES. PATIENT AND VISITOR VERBALIZED UNDERSTANDING. WILL MONITOR PATIENT THROUGHOUT SHIFT.
[2019-01-08] MEDS: ACETYLCYSTEINE 10% (100 MG/ML) 100 MG/ML VIAL INH SCH ×2 (19:29→20:00)
--- NOTE | 2019-01-08 20:00 | NUR ---
PATIENT HAS PERSISTENT COUGH LARGE AMTS THIN SECRETIONS.GAVE PATIENT JENNIFER TO SXNED HER MOUTH
[2019-01-08] MEDS: BENZONATATE 100 MG CAPLF PO PRN (20:11)
--- NOTE | 2019-01-08 20:12 | NUR ---
PATIENT C/O ABDOMINAL PAIN 12/30. ADMINISTERED IV PUSH PAIN MEDICATION ORDERED, ALSO ADMINISTERED SCHEDULED PO AND IV ABX MEDICATIONS ORDERED. PATIENT TOLERATED THEM WELL. WILL CONTINUE TO MONITOR PATIENT.
[2019-01-08] MEDS ORDERED: metroNIDAZOLE 500 MG/NS PREMIX 100 ML IV SCH (21:00)
[2019-01-08] MEDS: DEXT 5% / NACL 0.9% 1,000 ML IV SCH (21:18)
--- NOTE | 2019-01-08 23:30 | NUR ---
RECEIVED CALL FROM [employer], ETA 1 1/2 HR. WILL INFORM [facility] FOR SCHEDULE CHANGE.
[2019-01-09] VITALS: BP 119/63
[2019-01-09] MEDS: HYDROmorphone 1 MG/ML AMP IVP PRN (00:06)
--- NOTE | 2019-01-09 00:10 | NUR ---
PATIENT C/O ABD PAIN 01/30. ADMINISTERED IV PUSH MEDICATION ORDERED. PATIENT TOLERATED IT WELL. VITAL SIGNS CHECKED AND CHARTED. WILL CONTINUE TO MONITOR PATIENT. CALLED [facility], SPOKE TO RN IN STATION 3, INFORMED OF THE NEW ETA.
--- NOTE | 2019-01-09 01:55 | NUR ---
THERAPIST PHYS CALLED TRANSPORTATION SERVICES AGAIN. ETA NOW IS 20 MINS. WILL GET PATIENT READY.
--- NOTE | 2019-01-09 02:45 | NUR ---
PATIENT DISCHARGED. CALLED [facility], SPOKE TO MARCELA TO GIVE UPDATE AND CURRENT VS. VS: T 97.5, BP 121/69, P 83, RR 16, O2 SAT 95%, C/O OF TOLERABLE ABDOMINAL PAIN. PATIENT IS IN STABLE CONDITION.
[2019-01-09] MEDS ORDERED: METOCLOPRAMIDE 10 MG TAB PO SCH (07:30)
[2019-01-09] MEDS ORDERED: PANTOPRAZOLE 40 MG INJ VIAL IVP SCH (09:00)
[2019-01-09] MEDS ORDERED: SENNA 8.6 MG TAB PO SCH (09:00)
[2019-01-15 11:38] LABS: ALBUMIN,BODY FLUID 1.8 g/dL; LIPASE,BODY FLUID 12 U/L
[2019-01-15 11:39] LABS: LDH,BODY FLUID 182 U/L
== END 2019-01-09 02:45 | DRG 871 ==
LOC: MED 18:00 → MTU 22:47 → MMU 01-05
PROVIDERS: ADMIT General Practice; ATTEND General Practice
PROC: 0DB58ZX Excision of Esophagus, Via Natural or Artificial Opening Endoscopic, Diagnostic (ICD-10-PCS; 2019-01-08)
PROC: 0W9G3ZZ Drainage of Peritoneal Cavity, Percutaneous Approach (ICD-10-PCS; principal; 2019-01-08 15:15)
DX: A41.9 Sepsis, unspecified organism (principal); J69.0 Pneumonitis due to inhalation of food and vomit; I21.A1 Myocardial infarction type 2; N17.0 Acute kidney failure with tubular necrosis; E43 Unspecified severe protein-calorie malnutrition; Z68.1 Body mass index [BMI] 19.9 or less, adult; R18.8 Other ascites; K22.10 Ulcer of esophagus without bleeding; N39.0 Urinary tract infection, site not specified; D68.59 Other primary thrombophilia; C16.9 Malignant neoplasm of stomach, unspecified; E87.0 Hyperosmolality and hypernatremia; E86.0 Dehydration; D63.8 Anemia in other chronic diseases classified elsewhere; K57.30 Diverticulosis of large intestine without perforation or abscess without bleeding; K41.90 Unilateral femoral hernia, without obstruction or gangrene, not specified as recurrent; E11.9 Type 2 diabetes mellitus without complications; D25.9 Leiomyoma of uterus, unspecified; K82.8 Other specified diseases of gallbladder; K86.89 Other specified diseases of pancreas; I35.0 Nonrheumatic aortic (valve) stenosis; I11.9 Hypertensive heart disease without heart failure; I05.0 Rheumatic mitral stenosis; E78.5 Hyperlipidemia, unspecified; E83.42 Hypomagnesemia; N83.9 Noninflammatory disorder of ovary, fallopian tube and broad ligament, unspecified; K44.9 Diaphragmatic hernia without obstruction or gangrene; K59.00 Constipation, unspecified; Z87.891 Personal history of nicotine dependence; Z82.49 Family history of ischemic heart disease and other diseases of the circulatory system; Z88.0 Allergy status to penicillin; Z79.899 Other long term (current) drug therapy; Q82.0 Hereditary lymphedema
CPT/HCPCS: 36415; 49083; 71045; 74018; 74022; 76700; 76830; 80048; 80053; 81001; 82140; 82150; 82607; 82746; 82945; 83036; 83605; 83615; 83690; 83735; 83880; 84100; 84157; 84439; 84443; 84484; 85025; 85610; 85730; 86304; 87040; 87070; 87075; 87081; 87086; 87205; 88305; 88312; 88313; 88342; 89051; 89220; 92610; 93005; 94640; 96374; 97110; 97112; 97161-GP; 97530; 99285; J0696; J1170; J1200; J1644; J2001; J2250; J2270; J2405; J2550; J3010; J3480; J3490; J7030; J7042; J7060; J7620; Q0092